=== PATIENT | male | born 2000 | race Hispanic/Latino ===

== ENCOUNTER 2021-11-02 18:41 | Emergency (ER) | payer OTHER, SELFPAY ==
[2021-11-02 18:42] VITALS: BP 127/91; PULSE 79; RESP 16; TEMP 37.5; O2SAT 98
--- NOTE | 2021-11-02 19:40 | PC.NURSE ---
Addendum entered by Sonny Plaza RN 11/02/21 19:41: Patient stable upon departure Original Note: Patient mother informed this nurse that they had come in because patient had something in his eye but it was out now and he was feeling better. Did not want to be seen and departed ED at this time. top former Irina made aware.
--- NOTE | 2021-11-02 19:40 | PC.NURSE ---
pt LWBS, DENIED NEED TO BE SEEN. ENCOURAGED TO RETURN IF PT FELT SYMPTOMS WARRANTED EVALUATION AND TREATMENT. PT AGREEABLE TO THIS
--- NOTE | 2021-11-02 19:40 | PC.NURSE ---
Pt and family approached triage desk and stated that the piece of plastic in eye came out , and stated they are going to leave. Pt ambulated out of ED with steady gait, in no obvious distress.
== END 2021-11-02 19:57 | disposition left against medical advice (07) ==
PROVIDERS: Emergency Provider Emergency Medicine
DX: T15.02XA Foreign body in cornea, left eye, initial encounter (principal)
CPT/HCPCS: 99199